=== PATIENT | male | born 1955 | race Caucasian/White ===

== ENCOUNTER → 2022-06-27 | Outpatient (CLI) | payer OTHER ==
[~2022-06-27] MED LIST: ASPI81TA7 PO; COZA100T2 PO; FLEX5TAB3 PO; FLUO20CA8 PO; FLUT1SPR2; LASI20TA PO; LORA5SOL2 PO; LOSA100T PO; MULTLIQ7 PO; PANT40TA2 PO; TRAZ50TA2 PO; VENTAER IN; ZOCO40TA PO
[2022-06-27 16:01] LABS: BASO # 0.1 10^3/uL (0.0-0.2); BASO % 0.8 % (0.0-1.0); EOS # 0.2 10^3/uL (0.0-0.5); EOS % 2.7 % (0.0-3.0); HEMATOCRIT 42.4 % (42.0-52.0); HEMOGLOBIN 12.9 g/dl (13.5-17.5); LYMPH # 2.8 10^3/uL (1.5-5.0); LYMPH % 35.7 % (24.0-44.0); MEAN CORPUSCULAR HEMOGLOBIN 27.2 pg (27.0-33.0); MEAN CORPUSCULAR HGB CONC 30.4 g/dl (32.0-36.5); MEAN CORPUSCULAR VOLUME 89.3 fl (80.0-96.0); MONO # 0.6 10^3/uL (0.0-0.8); MONO % 7.2 % (2.0-8.0); NEUTROPHILS # 4.1 10^3/uL (1.5-8.5); NEUTROPHILS % 52.5 % (36.0-66.0); PLATELET COUNT, AUTOMATED 203 10^3/uL (150-450); RED BLOOD COUNT 4.75 10^6/uL (4.30-6.10); WHITE BLOOD COUNT 7.9 10^3/uL (4.0-10.0)
[2022-06-27 16:19] LABS: ERYTHROCYTE SEDIMENTATION RATE 48 mm/hr (0-20)
[2022-06-27 16:36] LABS: ALBUMIN 3.9 G/DL (3.2-5.2); ALKALINE PHOSPHATASE 119 U/L (46-116); ALT/SGPT 15 U/L (7.0-40); AST/SGOT 21 U/L (<34); BILIRUBIN,TOTAL 0.4 MG/DL (0.3-1.2); BLOOD UREA NITROGEN 25 MG/DL (9-23); CARBON DIOXIDE LEVEL 31 MMOL/L (20-31); CHLORIDE LEVEL 100 MMOL/L (98-107); CHOLESTEROL LEVEL 146 MG/DL (<200); CHOLESTEROL RISK RATIO 3.65 (<5); CREATININE FOR GFR 1.17 MG/DL (0.70-1.30); GLOMERULAR FILTRATION RATE > 60.0 (>49); GLUCOSE, FASTING 77 MG/DL (74-106); LDL CHOLESTEROL 83.4 MG/DL (<100); NON-HDL-C 106 MG/DL; POTASSIUM SERUM 4.6 MMOL/L (3.5-5.1); SODIUM LEVEL 140 MMOL/L (136-145); TRIGLYCERIDES LEVEL 113 MG/DL (<150)
[2022-06-27 16:37] LABS: VITAMIN B12 LEVEL 361 PG/ML (211-911)
[2022-06-27 16:40] LABS: THYROID STIMULATING HORMONE 0.622 uIU/ML (0.55-4.78)
[2022-06-27 17:06] LABS: HEMOGLOBIN A1c 5.2 % (4.0-6.0)
== END ==
LOC: M PLALAB 12:06
PROVIDERS: ATTEND Family Medicine
DX: I10 Essential (primary) hypertension (principal)

== ENCOUNTER → 2022-06-27 | Outpatient (CLI) | payer OTHER ==
[2022-06-27 16:02] LABS: BASO # 0.1 10^3/uL (0.0-0.2); BASO % 0.8 % (0.0-1.0); EOS # 0.2 10^3/uL (0.0-0.5); HEMATOCRIT 42.1 % (42.0-52.0); HEMOGLOBIN 13.1 g/dl (13.5-17.5); LYMPH # 2.7 10^3/uL (1.5-5.0); LYMPH % 35.4 % (24.0-44.0); MEAN CORPUSCULAR HEMOGLOBIN 27.8 pg (27.0-33.0); MEAN CORPUSCULAR HGB CONC 31.1 g/dl (32.0-36.5); MEAN CORPUSCULAR VOLUME 89.4 fl (80.0-96.0); MONO # 0.6 10^3/uL (0.0-0.8); MONO % 7.6 % (2.0-8.0); NEUTROPHILS % 52.8 % (36.0-66.0); PLATELET COUNT, AUTOMATED 195 10^3/uL (150-450); RED BLOOD COUNT 4.71 10^6/uL (4.30-6.10); WHITE BLOOD COUNT 7.7 10^3/uL (4.0-10.0)
[2022-06-27 16:18] LABS: ERYTHROCYTE SEDIMENTATION RATE 45 mm/hr (0-20)
[2022-06-27 16:37] LABS: ALBUMIN 3.8 G/DL (3.2-5.2); ALKALINE PHOSPHATASE 118 U/L (46-116); ALT/SGPT < 9 U/L (7.0-40); AST/SGOT 22 U/L (<34); BILIRUBIN,TOTAL 0.4 MG/DL (0.3-1.2); BLOOD UREA NITROGEN 23 MG/DL (9-23); CARBON DIOXIDE LEVEL 31 MMOL/L (20-31); CHLORIDE LEVEL 100 MMOL/L (98-107); CREATININE FOR GFR 1.18 MG/DL (0.70-1.30); GLOMERULAR FILTRATION RATE > 60.0 (>49); GLUCOSE, FASTING 77 MG/DL (74-106); POTASSIUM SERUM 4.7 MMOL/L (3.5-5.1); SODIUM LEVEL 139 MMOL/L (136-145); TOTAL PROTEIN 7.3 G/DL (5.7-8.2)
[2022-06-27 16:38] LABS: FOLATE 10.41 NG/ML (>5.4); FREE THYROXINE INDEX 2.6 % (1.4-3.8); T UPTAKE 35.1 % (22.5-37.0); THYROID STIMULATING HORMONE 0.627 uIU/ML (0.55-4.78); THYROXINE (T4) 7.5 UG/DL (4.5-10.9)
[2022-06-27 16:39] LABS: VITAMIN B12 LEVEL 295 PG/ML (211-911)
== END ==
LOC: M PLALAB 12:02
PROVIDERS: ATTEND Psychiatry & Neurology Neurology
DX: F03.90 Unspecified dementia, unspecified severity, without behavioral disturbance, psychotic disturbance, mood disturbance, and anxiety (principal)

== ENCOUNTER → 2023-06-27 | Outpatient (CLI) | payer MEDICARE, OTHER ==
[2023-06-27 14:11] LABS: BASO # 0.1 10^3/uL (0.0-0.2); BASO % 0.6 % (0.0-1.0); EOS # 0.2 10^3/uL (0.0-0.5); EOS % 2.4 % (0.0-3.0); HEMATOCRIT 40.4 % (42.0-52.0); LYMPH # 3.1 10^3/uL (1.5-5.0); LYMPH % 36.8 % (24.0-44.0); MEAN CORPUSCULAR HEMOGLOBIN 28.8 pg (27.0-33.0); MEAN CORPUSCULAR HGB CONC 32.2 g/dl (32.0-36.5); MEAN CORPUSCULAR VOLUME 89.6 fl (80.0-96.0); MONO # 0.6 10^3/uL (0.0-0.8); NEUTROPHILS # 4.4 10^3/uL (1.5-8.5); NEUTROPHILS % 52.8 % (36.0-66.0); PLATELET COUNT, AUTOMATED 157 10^3/uL (150-450); RED BLOOD COUNT 4.51 10^6/uL (4.30-6.10); WHITE BLOOD COUNT 8.4 10^3/uL (4.0-10.0)
[2023-06-27 14:19] LABS: CREATININE FOR GFR 1.39 MG/DL (0.70-1.30); GLOMERULAR FILTRATION RATE 54.4 (>49)
[2023-06-27 14:21] LABS: ERYTHROCYTE SEDIMENTATION RATE 40 mm/hr (0-20)
== END ==
LOC: M PLALAB 10:06
PROVIDERS: ATTEND Internal Medicine Rheumatology
DX: M10.9 Gout, unspecified (principal); Z79.899 Other long term (current) drug therapy

== ENCOUNTER → 2023-06-27 | Outpatient (CLI) | payer MEDICARE, OTHER ==
[2023-06-27 14:10] LABS: BASO # 0.1 10^3/uL (0.0-0.2); BASO % 0.7 % (0.0-1.0); EOS # 0.2 10^3/uL (0.0-0.5); EOS % 2.7 % (0.0-3.0); HEMATOCRIT 41.1 % (42.0-52.0); HEMOGLOBIN 13.2 g/dl (13.5-17.5); LYMPH # 3.2 10^3/uL (1.5-5.0); LYMPH % 35.8 % (24.0-44.0); MEAN CORPUSCULAR HEMOGLOBIN 28.9 pg (27.0-33.0); MEAN CORPUSCULAR HGB CONC 32.1 g/dl (32.0-36.5); MEAN CORPUSCULAR VOLUME 89.9 fl (80.0-96.0); MONO # 0.7 10^3/uL (0.0-0.8); MONO % 7.5 % (2.0-8.0); NEUTROPHILS # 4.7 10^3/uL (1.5-8.5); PLATELET COUNT, AUTOMATED 163 10^3/uL (150-450); RED BLOOD COUNT 4.57 10^6/uL (4.30-6.10); WHITE BLOOD COUNT 8.9 10^3/uL (4.0-10.0)
[2023-06-27 14:18] LABS: ALBUMIN 3.6 G/DL (3.2-5.2); BILIRUBIN,TOTAL 0.4 MG/DL (0.3-1.2); CALCIUM LEVEL 8.8 MG/DL (8.3-10.6); CHOLESTEROL RISK RATIO 2.52 (<5); CREATININE FOR GFR 1.42 MG/DL (0.70-1.30); GLOMERULAR FILTRATION RATE 53.1 (>49); HDL CHOLESTEROL 46.4 MG/DL (>40); LDL CHOLESTEROL 55.8 MG/DL (<100); NON-HDL-C 70.6 MG/DL; POTASSIUM SERUM 4.4 MMOL/L (3.5-5.1); TOTAL PROTEIN 6.2 G/DL (5.7-8.2)
[2023-06-27 14:20] LABS: THYROID STIMULATING HORMONE 0.911 uIU/ML (0.55-4.78)
[2023-06-27 14:25] LABS: HEMOGLOBIN A1c 5.4 % (4.0-6.0)
== END ==
LOC: M PLALAB 10:07
PROVIDERS: ATTEND Family Medicine
DX: I10 Essential (primary) hypertension (principal); M10.9 Gout, unspecified; Z79.899 Other long term (current) drug therapy